=== PATIENT | female | born 1980 | race African-American/Black ===

== ENCOUNTER 2018-10-31 17:36 | Observation (INO) ==
--- NOTE | 2018-10-31 17:59 | EKG Report ---
Test Performed on : 10/31/2018 5:56:08 PM Test Reason : "heart racing" Blood Pressure : / mmHG Vent. Rate : 088 BPM Atrial Rate : 088 BPM P-R Int : 140 ms QRS Dur : 086 ms QT Int : 362 ms P-R-T Axes : 038 004 021 degrees QTc Int : 438 ms Normal sinus rhythm. Normal ECG When compared with ECG of 17-MAY-2018 20:37, No significant change was found Unconfirmed Result
[2018-10-31] MEDS ORDERED: ASPIRIN PO ONE (18:35)
--- NOTE | 2018-10-31 18:41 | PROVIDER DOCUMENTATION ---
HPI-Chest Pain - General Chief Complaint: General Adult Stated Complaint: SOB / HEART RACING Time Seen by Provider: 10/31/18 18:21 Source: patient Allergies/Adverse Reactions: Patient Allergies Allergy/AdvReac Type Severity Reaction Status Date / Time levofloxacin [From Levaquin] AdvReac Unknown Verified 10/31/18 18:04 Home Medications: Home Medication List Medication Instructions Recorded Confirmed Last Taken Type Lisinopril 10 mg PO DAILY 05/17/18 10/31/18 Unknown History - History of Present Illness-CP Nature of Presenting Problem: pt reports intermittent chest tightness and dyspnea onset yesterday, reports several short duration episodes 4-5 minutes since yesterday, pt asymptomatic at this time, pt reports palpitations, dizziness and feeling faint during episodes. no prior cardiac HX., denies n/v or other sx at this time. Review of Systems - Adult - REVIEW OF SYSTEMS - ADULT Constitutional: reports: no symptoms reported Eyes: reports: no symptoms reported Ears, Nose, Mouth & Throat: reports: no symptoms reported Cardiovascular: reports: see HPI Respiratory: reports: see HPI Gastrointestinal: reports: no symptoms reported Genitourinary: reports: no symptoms reported Musculoskeletal: reports: no symptoms reported Integumentary: reports: no symptoms reported Neurological: reports: no symptoms reported Psychiatric: reports: no symptoms reported Endocrine: reports: no symptoms reported Hematologic/Lymphatic: reports: no symptoms reported Allergic/Immunologic: reports: no symptoms reported All Other Systems: Reviewed and Negative Past History - Adult - PAST MEDICAL HISTORY-ADULT Review of Records: reports: Old Records Reviewed, Nursing Assessment Review, Medications Reviewed Major Childhood Illnesses: reports: denies history Cardiovascular: reports: HTN Respiratory: reports: denies history Gastrointestinal: reports: denies history Obstetrical/Gynecological: reports: denies history Genitourinary: reports: denies history Musculoskeletal: reports: denies history Neurological: reports: denies history Psychiatric: reports: denies history Endocrine/Immune: reports: denies history Other Conditions: reports: denies history - PRIOR SURGERIES/PROCEDURES Surgical/Procedure History: reports: cholecystectomy - IMMUNIZATION STATUS Childhood Immunizations: See Nurse Assessment Flu Vaccine: See Nurse Assessment - FAMILY HISTORY Family History: reviewed, not pertinent, CAD over 55 yo, CVA/TIA (father CVA at 40), HTN - SOCIAL HISTORY Smoking: denies Substance Use: none/never Alcohol Use Frequency: never Physical Exam-General - PHYSICAL EXAM-ADULT Initial Vital Signs Reviewed: Yes - CONSTITUTIONAL General Appearance: appears well, alert, no apparent distress, obese - EYES Eyes: PERRL/EOMI, pink conjunctivae. negative: photophobia, sclera injected - HEAD, EARS, NOSE, MOUTH & THROAT HENMT: normocephalic/atraumatic, moist mucous membranes, normal ENT inspection - NECK Neck: non-tender, full range of motion, supple - RESPIRATORY Respiratory: chest non-tender, lungs clear, normal breath sounds, no pleuratic chest pain, no respiratory distress, no accessory muscle use - CARDIOVASCULAR Cardiovascular: normal peripheral pulses, regular rate, rhythm, no edema, no gallop, no JVD, no murmur - GASTROINTESTINAL (ABDOMEN) Abdominal Exam: normal bowel sounds, non tender, soft - LYMPHATIC Lymphatic: no adenopathy - MUSCULOSKELETAL Back Exam: normal inspection, no CVA tenderness Extremity: normal range of motion, non-tender, normal gait - SKIN Integumentary: normal color, normal turgor, warm/dry - NEUROLOGIC Neurologic: grossly normal, no motor/sensory deficits. negative: facial droop, focal weakness - PSYCHIATRIC Psych/Mental Status: normal mood/affect, normal thought content, normal thought process, oriented x 3 - HEART Score HEART Score: History: Highly Suspicious HEART Score: ECG: Normal HEART Score: Age: < or = 45 Years HEART Score: Risk Factors for Atherosclerotic Disease: > or = 3 Risk Factors or History of Atherosclerotic Disease (father multiple CVA at 40, obesity, HTN,) HEART Score: Troponin: < or = Normal Limit Total HEART Score:: 4 Progress - PLAN OF CARE/RESULTS Progress/Plan/Lab Results: Vital Signs - 8 hr 10/31/18 17:45 10/31/18 18:04 Temperature 98.6 F Pulse Rate 89 79 Respiratory Rate 18 17 Blood Pressure 150/89 135/94 O2 Sat by Pulse Oximetry 100 100 Laboratory Results - last 24 hr 10/31/18 10/31/18 10/31/18 19:00 19:00 19:00 WBC 6.01 RBC 4.21 Hgb 10.3 L Hct 33.4 L MCV 79.3 L MCH 24.5 L MCHC 30.8 L RDW Std Deviation 14.6 H Plt Count 295 MPV 9.6 Immature Gran % (Auto) 0.2 Neut % (Auto) 53.3 Lymph % (Auto) 38.9 [place] % (Auto) 6.0 Eos % (Auto) 1.3 Baso % (Auto) 0.3 Immature Gran # (Auto) 0.01 Neut # (Auto) 3.20 Lymph # (Auto) 2.34 [place] # (Auto) 0.36 Eos # (Auto) 0.08 Baso # (Auto) 0.02 PT INR PTT (Actin FS) Sodium 139 Potassium 4.1 Chloride 105 Carbon Dioxide 23 L Anion Gap 11 BUN 12 Creatinine 0.5 Estimated GFR/1.73 m2 > 60 BUN/Creatinine Ratio 24 Glucose 85 Calculated Osmolality 277 Calcium 8.7 L Total Bilirubin 0.20 AST 14 ALT 12 Alkaline Phosphatase 60 Creatine Kinase 93 Troponin T Hfr-C-Nuypunkksxv Pept 195 H Total Protein 7.1 Albumin 3.7 Globulin 3.0 Albumin/Globulin Ratio 1.0 10/31/18 10/31/18 19:00 19:00 WBC RBC Hgb Hct MCV MCH MCHC RDW Std Deviation Plt Count MPV Immature Gran % (Auto) Neut % (Auto) Lymph % (Auto) [place] % (Auto) Eos % (Auto) Baso % (Auto) Immature Gran # (Auto) Neut # (Auto) Lymph # (Auto) [place] # (Auto) Eos # (Auto) Baso # (Auto) PT 14.4 INR 1.07 PTT (Actin FS) 33.3 Sodium Potassium Chloride Carbon Dioxide Anion Gap BUN Creatinine Estimated GFR/1.73 m2 BUN/Creatinine Ratio Glucose Calculated Osmolality Calcium Total Bilirubin AST ALT Alkaline Phosphatase Creatine Kinase Troponin T < 0.010 [id number]-Ljapmlbeezh Pept Total Protein Albumin Globulin Albumin/Globulin Ratio Orders Category Date Time Status Cardiac Monitoring DIRECTED Care 10/31/18 18:36 Active Nursing- Obtain EKG ONCE Care 10/31/18 17:49 Active Oxygen Therapy- ED Nursing DIRECTED Care 10/31/18 18:36 Active Saline Loc NOW Care 10/31/18 18:36 Active CHEST-2 VIEWS [RAD] Stat Exams 10/31/18 18:36 Completed CBC WITH ELECTRONIC DIFF [HEME] Stat Lab 10/31/18 19:00 Completed CK PROFILE [SP CHEM] Stat Lab 10/31/18 19:00 Completed CK PROFILE [SP CHEM] Stat Lab 10/31/18 20:36 Ordered COMPREHENSIVE METABOLIC PANEL [CHEM] Stat Lab 10/31/18 19:00 Completed PRO B-NATRIURETIC PEPTIDE Stat Lab 10/31/18 19:00 Completed PROTIME WITH INR [COAG] Stat Lab 10/31/18 19:00 Completed PTT [COAG] Stat Lab 10/31/18 19:00 Completed TROPONIN T Stat Lab 10/31/18 19:00 Completed TROPONIN T Stat Lab 10/31/18 20:36 Ordered Aspirin Med 10/31/18 18:35 Discontinued 325 mg PO NOW ONE CP/SOB/Palp >45 yrs of Age Stat Oth 10/31/18 18:35 Ordered EKG [EKG] Stat Ther 10/31/18 17:49 Draft EKG [EKG] Stat Ther 10/31/18 20:36 Ordered Result Diagrams: 10/31/18 19:00 10/31/18 19:00 - EKG 1 Time of EKG reading by physician:: 17:56 EKG Read and Signed by:: Josep Patel EKG Interpretation (*Must complete 3 of following elements*): Normal Rate: 88 Rhythm: NSR [place]: normal QRS: normal CA Interval: normal ST Wave: normal Prior EKG Comparison: unchanged from prior 2 Time of EKG reading by physician:: 20:44 EKG Read and Signed by:: Garrett Arevalo EKG Interpretation (*Must complete 3 of following elements*): Normal Rate: 83 Rhythm: NSR [place]: normal QRS: normal CA Interval: normal ST Wave: normal Prior EKG Comparison: unchanged from prior - XRAY 1 XRAY Study: Chest Impression: Normal Comparison with other Films: no changes (NAD) - CONSULTS/PCP/HOSPITALIST Notification #1 *Consult/PCP/Hospitalist*: katarina Time Discussed: 21:25 Consult Disposition: Admit Departure - Departure Date of Disposition Decision: 10/31/18 Time of Disposition Decision: 21:26 DIAGNOSIS: Chest pain Disposition: ADMITTED INPATIENT 09 Certified Medical Emergency: Emergent Condition: Stable Referrals and Follow-Ups: CARMINA BATISTA CRNP [Primary Care Provider] - - Critical Care Note This patient required my direct & personal management of CC.: No Attestation - Physician/ ASHU Attestation Patient care was provided by Advanced Practice Provider:: Yes Advanced Practice Provider:: Maddison Pierce Advanced Practice Provider documentation review:: The Mid-level provider documentation, treatment plan and medical decision making was reviewed by the physician who agrees with all treatment and medical decision making by the MLP. The physician spent face to face time with patient:: No Advanced Practice Provider documentation review:: Supervising physician onsite and consulted in the evaluation and care of this patient. The physician did not have a face to face encounter with the patient.
--- NOTE | 2018-10-31 18:56 | Diag Imaging Result Doc PS360 ---
EXAM: CHEST-2 VIEWS 10/31/2018 HISTORY: cp/sob TECHNIQUE: PA and lateral chest COMMENT: There is no evidence of acute cardiac or pulmonary disease. Compared to 09/06/2018 there has been no significant change in the appearance the chest. IMPRESSION: No evidence of acute disease. Electronically signed by Barney Santoyo 10/31/2018 6:54 PM
[2018-10-31 19:19] LABS: BASO# 0.02 X1000 (0.0-0.2); BASO% 0.3 % (0.0-0.8); EOS# 0.08 X1000 (0.0-0.7); EOS% 1.3 % (0.0-10.0); HEMATOCRIT 33.4 % (37.0-47.0); HEMOGLOBIN 10.3 g/dL (12.0-16.0); IMM GRAN# 0.01 X1000 (0.0-0.04); IMM GRAN% 0.2 % (0.0-0.5); LYMPH# 2.34 X1000 (1.2-3.4); LYMPH% 38.9 % (20.5-51.1); MCH 24.5 PG (27-31); MCHC 30.8 g/dL (33-37); MCV 79.3 FL (81-99); MONO# 0.36 X1000 (0.11-0.59); MPV 9.6 FL (7.4-10.4); NEUT% 53.3 % (42.2-75.2); PLT 295 X1000 (130-400); RBC 4.21 XMIL (4.2-5.4); RDW 14.6 % (11.5-14.5); WBC 6.01 X1000 (4.8-10.8)
[2018-10-31 19:32] LABS: INR 1.07; PROTIME 14.4 Seconds (11.0-16.0)
[2018-10-31 19:33] LABS: PTT 33.3 Seconds (22.3-41.8)
[2018-10-31 19:50] LABS: AGAP 11; BUN 12 mg/dL (8-22); CHLORIDE 105 mmol/L (98-107); COSMO 277; GLUCOSE 85 mg/dL (70-104); POTASSIUM 4.1 mmol/L (3.5-5.1); SODIUM 139 mmol/L (136-145); TCO2 23 mmol/L (25-35)
[2018-10-31 19:51] LABS: ALBUMIN 3.7 g/dL (3.5-5.0); ALKALINE PHOSPHATASE 60 U/L (32-104); CALCIUM 8.7 mg/dL (8.8-10.2); CK PROFILE 93 U/L (24-173); CREATININE 0.5 mg/dL (0.5-0.9); ESTIMATED GFR > 60; GOT 14 U/L (10-30); GPT 12 U/L (10-36); TOTAL PROTEIN 7.1 g/dL (6.3-8.3)
--- NOTE | 2018-10-31 22:51 | EKG Report ---
Test Performed on : 10/31/2018 8:44:11 PM Test Reason : CP Blood Pressure : / mmHG Vent. Rate : 083 BPM Atrial Rate : 083 BPM P-R Int : 150 ms QRS Dur : 086 ms QT Int : 374 ms P-R-T Axes : 040 005 020 degrees QTc Int : 439 ms Normal sinus rhythm. Normal ECG When compared with ECG of 31-OCT-2018 17:56, (Unconfirmed) No significant change was found Unconfirmed Result
[2018-11-01] MEDS ORDERED: MORPHINE IV PRN (03:00)
[2018-11-01] MEDS ORDERED: ZOFRAN ODT PO ONE (03:00)
[2018-11-01] MEDS ORDERED: APRESOLINE IV PRN (18:13)
--- NOTE | 2018-11-02 01:49 | HISTORY AND PHYSICAL ---
CHIEF COMPLAINT: Shortness of breath, heart racing. HISTORY OF PRESENT ILLNESS: This is a 38-year-old female with a history of hypertension, hyperthyroid, and anemia. She presents to the emergency room complaining of intermittent episodes of palpitations and feeling faint during episodes, palpitations and lightheadedness. She states she has had several over the last previous 36 hours. They last anywhere from 2 to 5 minutes. Other than feeling dizzy, she has had no other accompanying symptoms. She denied any chest pain, shortness of breath, any nausea, vomiting, diaphoresis or true syncope. PAST MEDICAL HISTORY: Hypertension, hyperthyroid, and anemia. PAST SURGICAL HISTORY: , tubal ligation, cholecystectomy, D and C x2 and uterine ablation. SOCIAL HISTORY: She denies alcohol, tobacco, or illicit drug use. ALLERGIES: Levaquin which causes unknown reaction. HOME MEDICATIONS: A list will be obtained by the nursing staff and once verified we will review restart as appropriate. REVIEW OF SYSTEMS: Discussed with patient with pertinent positives stated in the HPI. She denied any syncope, any chest pain, productive cough, any fever, chills, PND, orthopnea, any night sweats, recent weight loss or weight gain, any nausea, vomiting, diarrhea, constipation, black or bloody vomitus or stools, any hematuria, dysuria, frequency, urgency. PHYSICAL EXAMINATION: GENERAL: This is a 38-year-old female who is sitting up in the bed on the medical-surgical floor in no distress. VITAL SIGNS: Blood pressure is 156/90 with a heart rate of 73, respirations 18, temperature is 98.3 degrees oral with room air saturations 100%. EYES: Pupils equal, round, react to light. EOMs are intact. Sclerae are anicteric. HEENT: Head is normocephalic, atraumatic. Mucous membranes are moist. NECK: Supple with trachea midline. No JVD. CARDIOVASCULAR: Regular rate and rhythm. S1 and S2 appreciated. She has no lower extremity edema. Peripheral pulses are palpable x4 extremities and calves are nontender to palpation. PULMONARY: Breath sounds are clear with no increased work of breathing noted. Chest rises and falls symmetric with respiration. No increased work of breathing noted. GASTROINTESTINAL: Abdomen is soft, nontender, nondistended with bowel sounds in all 4 quadrants. NEUROLOGIC: She is alert and oriented x3. SKIN: Warm and dry. LABS: WBC is 6 with hemoglobin 10.3, hematocrit 33, and platelets of 295,000. Sodium 139, potassium 4.1, BUN 12, creatinine 0.5 with a glucose of 85. Troponins are negative on multiple occasions. Chest x-ray revealed no evidence of acute disease. ASSESSMENT AND PLAN: 1. Palpitations. 2. Shortness of breath. 3. Hyperthyroid. 4. Hypertension. PLAN: Patient has been admitted to the medical-surgical floor. We will place her on telemetry. We will identify her home medications and continue. We will check a TSH and free T4. We will continue to trend troponins. Further treatments pending hospital course. Dictated by MIKHAIL Cooper for Yahir Bocanegra MD cc: MIKHAIL Cooper MD
--- NOTE | 2018-11-02 02:27 | HISTORY AND PHYSICAL ---
ADDENDUM: Patient seen and examined by myself. Full note dictated and discussed with nurse practitioner. Patient presented to the hospital with shortness of breath and palpitations. Currently, she is stable, awake, alert, and heart appears regular. We will place her on telemetry, allow her to ambulate and we will follow her clinical course. Please see full note. cc: Yahir Bocanegra MD
[2018-11-02 06:28] LABS: HEMATOCRIT 33.1 % (37.0-47.0); HEMOGLOBIN 10.1 g/dL (12.0-16.0); MCH 24.2 PG (27-31); MCHC 30.5 g/dL (33-37); MCV 79.4 FL (81-99); MPV 10.3 FL (7.4-10.4); RBC 4.17 XMIL (4.2-5.4); RDW 14.6 % (11.5-14.5); WBC 5.28 X1000 (4.8-10.8)
[2018-11-02 06:42] LABS: AGAP 11; BUN 12 mg/dL (8-22); CALCIUM 8.5 mg/dL (8.8-10.2); CHLORIDE 101 mmol/L (98-107); COSMO 272; CREATININE 0.5 mg/dL (0.5-0.9); ESTIMATED GFR > 60; GLUCOSE 98 mg/dL (70-104); POTASSIUM 4.1 mmol/L (3.5-5.1); SODIUM 136 mmol/L (136-145); TCO2 24 mmol/L (25-35)
[2018-11-02] MEDS ORDERED: PRILOSEC PO SCH (07:00)
[2018-11-02] MEDS ORDERED: PRINIVIL PO SCH (09:00)
[2018-11-02 10:55] VITALS: BP 158/93
--- NOTE | 2018-11-02 21:45 | DISCHARGE SUMMARY ---
ADMISSION DATE: 10/31/2018 DISCHARGE DATE: 11/02/2018 DIAGNOSES: 1. Palpitations, resolved. 2. Shortness of breath, resolved. 3. Hypothyroid. 4. Hypertension. DIAGNOSTICS: Chest x-ray revealed no evidence of acute disease. HOSPITAL COURSE: Ms Jacobs presented to the emergency room complaining of shortness of breath and palpitations. She did have dizziness during the episodes of palpitations, although this did resolve once they resolved. She was admitted on telemetry. Heart rate stayed in the 60s to 90s. She had no further episodes of palpitations. She ruled out by troponin. Troponins were less than 0.010 with EKGs revealing sinus rhythm with no ST-T changes. TSH was 3.77. DISCHARGE PHYSICAL EXAM: Vital signs: Blood pressure 158/93 with heart rate of 68, respirations are 18, temperature 97.9 degrees oral with room air saturations 98 to 99 percent. Cardiovascular: Regular rate and rhythm. S1 and S2 are appreciated. Pulmonary: Breath sounds are clear. No increased work of breathing noted. Gastrointestinal: Abdomen soft, nontender, nondistended with bowel sounds in all 4 quadrants. Neurologic: She is alert, oriented x3. Skin: Is warm and dry. DISCHARGE MEDICATIONS: 1. Coreg 3.125 p.o. q.12 hours. 2. Nexium 20 mg p.o. daily. 3. Lisinopril 10 mg p.o. daily. FOLLOWUP: Dr. Sulma Dumont in the next 1 to 2 weeks. She needs to call in the morning to schedule an appointment. She has been instructed to call to be seen sooner or return to the emergency room for any syncope, dizziness, chest pain, palpitations, any shortness of breath, cough, fever, chills, temperature greater than 101, any nausea, vomiting, diarrhea, constipation, black or bloody vomitus or stools, any hematuria, dysuria, frequency, urgency. She is being discharged home in stable condition with family members. TIME SPENT: Greater than 30 minutes. Dictated by MIKHAIL Cooper for Yahir Bocanegra MD cc: MD Yahir Hendrickson MD
--- NOTE | 2018-11-03 05:22 | DISCHARGE SUMMARY ---
ADMISSION DATE: 10/31/2018 DISCHARGE DATE: 11/02/2018 ADDENDUM: Patient discharged home. She was admitted to the hospital with palpitations and hypertension. We will add Coreg 3.125 twice daily to see if this will help both of her current issues. She will follow up outpatient with the primary care of her choice. Please see full note. cc: Yahir Bocanegra MD
== END 2018-11-02 12:31 | disposition home or self-care (01) ==
LOC: P.ED 17:36 → P.EDIPHOLD 17:36 → P.MEDSURG 11-01 07:54
PROVIDERS: ATTEND Family Medicine
CPT/HCPCS: 71020; 71046; 80048; 80053; 82550; 83880; 84443; 84484; 85025; 85027; 85610; 85730; 93005; 94761; 99285; A9270; J0360